=== PATIENT | female | born 1945 | race Caucasian/White ===

== ENCOUNTER 2016-11-06 19:28 | Observation (INO) | payer MEDICARE ==
[~2016-11-06] VITALS: Ht 160 cm; Wt 67.2 kg
[~2016-11-06 19:28] MED LIST: LEVO25TA2 PO; ZOC20 PO
[2016-11-06 19:32] VITALS: BP 190/81; PULSE 72; RESP 15; O2SAT 98
--- NOTE | 2016-11-06 19:43 | ED.REPORT ---
HPI-Neurologic Deficit Date of Service November 06, 2016 ED Provider: Dr. Richar Melendez D.O. A 71 year old female with a history of hypertension, GERD, and arthritis presents to the ED accompanied by her family after a two minute unresponsive episode just prior to arrival. The patient was at her son's house for dinner, when she suddenly sat back and her eyes rolled up into her head. When she came to, she was nonverbal and her eyes were deviated to the left. She was conscious and remembers this episode. The patient's symptoms have resolved since onset. She and her family deny headache, facial droop, focal weakness, or other symptoms. The patient also reports falling from a horse last week and was seen at Urgent Care yesterday for residual hip pain. Nursing Notes Stated Complaint: NEURO ISSUES Chief Complaint: General Complaint Nursing Notes Reviewed: Yes Allergies: Coded Allergies: No Known Allergies (Verified , 11/06/16) Scheduled Levothyroxine-Expunged Drug, Do Not Renew! (Levoxyl-Expunged Drug, Do Not Renew! ) 25 Mcg Tablet 25 MCG PO DAILY Simvastatin-Expunged Drug, Choose New Med! (Simvastatin-Expunged Drug, Choose New Med!) 20 Mg Tablet 20 MG PO DAILY General Time Seen by Provider: 19:43 Chief Complaint Other (Unresponsive Episode) Hx Obtained From: Patient Arrived By: Walk-in Sudden in Onset?: Yes Onset Occurred: Just prior to arrival Symptom Duration: 1 - 15 minutes Severity: Current: No pain currently Severity: Maximum: No pain Related History: Reports: Hypertension Immunizations: Unknown Recent Healthcare: Recent doctor visit Risk Factors NIH Stroke Scale Level of Consciousness: Alert and responsive (0) Ask Month & Age: Both questions right (0) Open/Close Eyes/Hand 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: Performs both tasks (0) Horizontal EO Movements: None (0) Facial Palsy: Normal symmetry (0) Right Arm Motor Drift (10s): No drift 10 sec (0) Left Arm Motor Drift (10s): No drift 10 sec (0) Right Leg Motor Drift (5s): No drift 5 sec (0) Left Leg Motor Drift (5s): No drift 5 sec (0) Limb Ataxia FNF/Heel-Mills: No ataxia (0) Sensation (Arms/Legs/Face): No sensory loss (0) Language Aphasia: No aphasia, normal (0) Dysarthria: Slurring intelligible (1) NIHSS Score: 0 Time NIHSS Performed: 19:52 Date NIHSS Performed: November 06, 2016 Past Medical History Past Medical History Hypertension GERD Arthritis Past Surgical History Kidney Stones Ectopic Knee Smoking History Unknown if Ever Smoker Social History Other Social History: Good social support Ambulatory Status Independent Review of Systems Review of Systems Note: + Left-sided eye deviation - Facial droop Constitutional: Denies: Fever Respiratory: Denies: Non-productive cough, Shortness of breath GI: Denies: Diarrhea, Vomiting Neurologic: Reports: Change LOC, Unable to speak, Denies: Focal weakness, Headache Complete sys rev & neg: except as marked. Physical Exam Initial Vital Signs Vital Signs (First) Date Time Temp Pulse Resp B/P Pulse Ox O2 Delivery O2 Flow Rate FiO2 11/06/16 19:32 36.8 72 15 190/81 98 Room Air Initial VS: Reviewed ENT: Conjunctiva normal, No scleral icterus Neck: Supple, Full range of motion Abdomen / GI: Soft, Non-tender Extremities: Vascular intact, Neuro intact Skin: Warm, Dry, No cyanosis Psychiatric: Mood/affect normal, Behavior normal, Normal thought content General/Constitutional: Awake, Alert, No acute distress Head / Eyes: Atraumatic, Normocephalic, EOMI Respiratory / Chest: Breath sounds NL, Breath sounds = bilat, No respiratory distress Cardiovascular: Heart rate NL, Regular rhythm, Heart sounds NL Neurologic: Oriented X3, Speech NL, No motor deficits, No sensory deficits Interpretation & Diagnostics Lab Results Interpretation Result Diagram: 11/06/16201411/06/162014 Test 11/06/16 20:15 White Blood Count 6.5th/mm3 (3.8-10.1) Red Blood Count 4.21mil/mm3 (3.90-5.20) Hemoglobin 11.7g/dL (12.0-15.6) Hematocrit 35.7% (35.0-46.0) Mean Corpuscular Volume 84.8fL (81-100) Mean Corpuscular Hemoglobin 27.8pg (27.0-35.0) Mean Corpuscular Hemoglobin Concent 32.8% (32.0-37.0) Red Cell Distribution Width 13.6% (12.3-15.4) Platelet Count 258bil/L (150-400) Neutrophils (%) (Auto) 56.9% (40-74) Lymphocytes (%) (Auto) 30.3% (14-46) Monocytes (%) (Auto) 7.2% (4-12) Eosinophils (%) (Auto) 4.6% (0-5) Basophils (%) (Auto) 0.8% (0-3) Sodium Level 141mEq/L (134-144) Potassium Level 3.5mEq/L (3.5-5.2) Chloride Level 101mEq/L (97-108) Carbon Dioxide Level 24mmol/L (18-29) Blood Urea Nitrogen 29mg/dL (8-27) Creatinine 0.78mg/dL (0.57-1.00) Estimat Glomerular Filtration Rate 104mL/min (>59) Glucose Level 123mg/dL (60-99) Calcium Level 10.2mg/dL (8.5-10.1) Magnesium Level 2.0mg/dL (1.6-2.6) Total Bilirubin 0.6mg/dL (0.0-1.2) Aspartate Amino Transf (AST/SGOT) 30U/L (0-50) Alanine Aminotransferase (ALT/SGPT) 20U/L (0-32) Alkaline Phosphatase 84U/L (25-165) Troponin T < 0.010ug/L (0.0-0.011) Total Protein 7.8g/dL (6.4-8.4) Albumin 4.6g/dL (3.4-5.0) Triglycerides Level 122mg/dL (0-149) Cholesterol Level 184mg/dL (100-199) LDL Cholesterol, Calculated 102.600mg/dL (0-99) VLDL Cholesterol 24.400mg/dL HDL Cholesterol 57mg/dL (>39) Cholesterol/HDL Ratio 3.23 (0.0-4.4) ECG Interpretation ECG Interpretation: Sinus rhythm rate 69 Artifact present Nothing acute Time: 19:59 Interpreted by: ED physician X-Ray Chest Interpretation Chest Xray Interpretation: IMPRESSION: No acute process. Dictated by: Ji Shea M.D. on 11/06/2016 at 20:08 View: Portable, 1 view Interpretation / Wet Read by: Interpret - Radiologist CT Head Interpretation IMPRESSION: No acute intracranial abnormality. Dictated by: Ji Shea M.D. on 11/06/2016 at 20:26 Study: Head CT no contrast Interpretation / Wet Read by: Interpret - Radiologist Re-Eval/Medical Decision Source of Hx: Old records Re-Evaluation/Progress : Time of Eval: 21:08 Patient Status: Condition improved Re-Evaluation/Progress Note: Discussed with patient CT, x-ray, and lab results, diagnosis, and plan for discharge. Follow-up and return to the ER instructions given. Patient agrees with plan for care and all questions were addressed. Consultation : Referral / Consult Name: Kate Story Call Returned at: 21:20 Tube Turner: Agrees with eval, Agrees with plan, Accepts admit Counseled Regarding: Diagnosis, Lab results, Need for admission Discharge & Departure Impression: Primary Impression: TIA (transient ischemic attack) Transient cerebral ischemia type: unspecified Qualified Code: G45.9 - Transient cerebral ischemic attack, unspecified Additional Impression: Syncope Syncope type: unspecified Qualified Code: R55 - Syncope and collapse Disposition: ADMITTED TO HOSPITAL Discharge Condition All VS Reviewed: Yes Condition: Improved Referrals: Malka Sanford DO (PCP) Pennyibмария Attestation Portions of this note were transcribed by Olga Ryan. I, Dr. Melendez, personally performed the history, physical exam, and medical decision-making; I reviewed and confirmed the accuracy of the information in the transcribed note. Signed by: Caden Amos, 11/06/2016, 22:26 copies to: Malka Sanford Todd P DO November 06, 2016 19:43 OLGA RYAN November 06, 2016 19:54
[2016-11-06 19:52] VITALS: BP 172/64; PULSE 72; RESP 13; O2SAT 97
--- NOTE | 2016-11-06 20:10 | DRSVH ---
PROCEDURE: X-RAY CHEST ONE VIEW, PORTABLE ([id number]) INDICATIONS: syncope TECHNIQUE: One view of the chest was acquired. COMPARISON: [facility] [place], [place], CHEST 2VW, 08/27/2009, 12:00. FINDINGS: Surgical changes and devices: None. Lungs and pleura: No pleural effusions or pneumothorax. Lungs are clear. Mediastinum: Mediastinal contours appear normal. Heart size is normal. Bones and chest wall: No suspicious bony lesions. Overlying soft tissues appear unremarkable. IMPRESSION: No acute process. Dictated by: Ji Shea M.D. on 11/06/2016 at 20:08 Approved by: Ji Shea M.D. on 11/06/2016 at 20:09
--- NOTE | 2016-11-06 20:28 | DRSVH ---
PROCEDURE: CT BRAIN WITHOUT CONTRAST ([id number]) INDICATIONS: tia TECHNIQUE: Noncontrast 4.5 mm thick angled axial sections acquired from the foramen magnum to the vertex, with c oronal reformats. COMPARISON: None. FINDINGS: Image quality: Excellent. CSF spaces: Basal cisterns are patent. No extra-axial fluid collections. The ventricles are symmet zhang in size and shape. Brain: No intracranial bleeds or masses. There is cerebral volume loss for age, with resultant vent ricular and sulcal prominence. There are periventricular and deep white matter chronic small vessel ischemic changes. There is intracranial internal carotid artery atherosclerosis. Skull and face: Calvarium and visualized facial bones appear intact, without suspicious lesions. Sinuses: Visualized sinuses and mastoids are clear. IMPRESSION: No acute intracranial abnormality. Dictated by: Ji Shea M.D. on 11/06/2016 at 20:26 Approved by: Ji Shea M.D. on 11/06/2016 at 20:27
[2016-11-06 20:31] LABS: BASOPHILS % (AUTO) 0.8 % (0-3); EOSINOPHILS % (AUTO) 4.6 % (0-5); MONOCYTES % (AUTO) 7.2 % (4-12); Mean Corpuscular Hemoglobin 27.8 pg (27.0-35.0); Mean Corpuscular Volume 84.8 fL (81-100); NEUTROPHILS % (AUTO) 56.9 % (40-74); Platelet Count 258 bil/L (150-400)
[2016-11-06 20:54] LABS: TROPONIN T < 0.010 ug/L (0.0-0.011)
[2016-11-06 21:45] VITALS: BP 142/81; PULSE 72; RESP 18; O2SAT 97
[2016-11-06] MEDS ORDERED: Labetalol 5 mg/mL 4 mL Inj IVPUSH PRN (21:50)
[2016-11-06] MEDS ORDERED: Ondansetron 2 mg/mL 2 mL Inj IVPUSH PRN (21:50)
[2016-11-06] MEDS ORDERED: Alum-Mag Hydrox-Simeth 30 mL Suspension PO PRN (21:50)
[2016-11-06] MEDS ORDERED: Polyethylene Glycol (PEG) 17 Gm Powder PO PRN (21:50)
[2016-11-06] MEDS ORDERED: oxyCODONE-Acetamin 5-325 mg Tablet PO PRN (21:50)
[2016-11-06] MEDS ORDERED: Artificial Tears 15 mL Ophthalmic Solution BOTH_EYES PRN (22:00)
--- NOTE | 2016-11-06 22:05 | PCM.HPMED ---
Subjective Date of Service November 06, 2016 Primary Provider: Admitting Physician: Kate Story DO Primary Care Physician: Malka Sanford DO Attending Physician: Kate Story DO Admit Status: From the Emergency Department Chief Complaint: Syncopal event with neurological symptoms History of Present Illness: Karen Meléndez is a 71 year old woman with a PMH of HTN, Hypothyroid, Carotid sclerosis, and insomnia who presents following a witnessed syncopal event at approximately 18:45 on 11/06/16. She reports that she was at the dinner table with family when she suddenly found her eyes locked deviated to the left and she couldn't talk. This lasted about 2 minutes before improving markedly with some lingering leftward BL eye deviation that gradually returned to normal over the next 2 hours. She reports that she is symptom free at the time of evaluation roughly 19:30 on 11/06/16. Of note she also fell off of a horse on which has resulted in lingering bruising and soreness along her left side, she saw urgent care for this injury and was given [place] 5-325 which she states has been working well for her. She currently denies any chest pain, palpitations , headache, visual phenomena, changes in sensation or perception, or lingering changes in mentation. In the ED the patient underwent CT of the brain which was negative for stroke, but does appear to show extensive carotid calcification BL, CXR was normal and her labs were remarkable only for very mild normocytic anemia, mild hyperglycemia, and a slightly elevated BUN at 29. Allergies Coded Allergies: No Known Allergies (Verified , 11/06/16) Home Medications Levothyroxine 0.05 mg 1.5 tablets daily Lisinopril 10 mg PO daily Meloxicam 7.5 mg PO Q1-2hr PRN [place] 5-325 Q4 PRN Omeprazole 20mg PO daily before meals Refresh Tears 0.5% eye drops, 1-3 drops q4 PRN Simvastatin 20mg PO HS Zolpidem 5 mg PO HS PRN PMH Hypertension GERD Arthritis Hypothyroidism Surgical History Left partial knee replacement Family History Father DM, CHF, HTN Mother Alive with HTN, and dementia Sister Hyperlipidemia 3 sons alive and well Social History Hx Alcohol Use: No Hx Substance Use: No Hx Tobacco Use: No Smoking Status: Unknown if Ever Smoker Living Arrangement: with Family Exam Vital Signs Vital Sign - Last Date Time Temp Pulse Resp B/P Pulse Ox O2 Delivery O2 Flow Rate FiO2 11/06/16 21:45 37.0 72 18 142/81 97 Room Air Exam Gen: A/O x3 pleasant cooperative woman in mild acute distress secondary to left sided pain and bruising Neck: Supple, non tender, mild BL carotid bruit, no JVD HEENT: PERRL, EOMI, no scleral icterus, no conjunctival pallor CV: RRR, no murmurs rubs or gallops Resp: Lungs CTA BL, no wheezing rales or rhonchi GI: Soft, non tender, no organomegaly, normoactive bowel sounds Skin: Diffuse bruising about the left side from should to hip with mild shallow abrasions to left nasal bridge and left forehead MS: Rheumatoid arthritis with knuckle hypertrophy and mild ulnar deviation, no cyanosis clubbing or edema, bruising as above Neuro: CN 2-12 intact, no focal neurological deficit, Strength and sensation intact and equal BL, no facial droop, speech clear and coherent: NIHSS 0 Psych: pleasantly surly Lymphatic: no cervical or supraclavicular lymphadenopathy on palpation Lab and Diagnostics Labs Item Value Date Time Estimat Glomerular Filtration Rate 104 mL/min 11/06/162014 Calcium Level 10.2 mg/dL H 11/06/162014 Magnesium Level 2.0 mg/dL 11/06/162014 Total Bilirubin 0.6 mg/dL 11/06/162014 Aspartate Amino Transf (AST/SGOT) 30 U/L 11/06/162014 Alanine Aminotransferase (ALT/SGPT) 20 U/L 11/06/162014 Alkaline Phosphatase 84 U/L 11/06/162014 Troponin T < 0.010 ug/L 11/06/162014 Total Protein 7.8 g/dL 11/06/162014 Albumin 4.6 g/dL 11/06/162014 Red Blood Count 4.21 mil/mm3 11/06/162014 Neutrophils (%) (Auto) 56.9 % 11/06/162014 Lymphocytes (%) (Auto) 30.3 % 11/06/162014 Monocytes (%) (Auto) 7.2 % 11/06/162014 Eosinophils (%) (Auto) 4.6 % 11/06/162014 Basophils (%) (Auto) 0.8 % 11/06/162014 Result Diagram: 11/06/16201411/06/162014 X-Rays, CTs and MRIs CT BRAIN WITHOUT CONTRAST IMPRESSION: No acute intracranial abnormality. Dictated by: Ji Shea M.D. on 11/06/2016 at 20:26 Approved by: Ji Shea M.D. on 11/06/2016 at 20:27 X-RAY CHEST ONE VIEW, PORTABLE IMPRESSION: No acute process. Dictated by: Ji Shea M.D. on 11/06/2016 at 20:08 Approved by: Ji Shea M.D. on 11/06/2016 at 20:09 . Assessment & Plan Radha Meléndez is a 71 year old woman with PMH of HTN, GERD, Carotid bruits, and insomnia who presents following a witness syncopal episode with associated left eye deviation and inability to speak lasting 2 minutes and resolving spontaneously. History and presentation most consistent with TIA, though arrhythmia or other cardiac etiology cannot be excluded at this time. 1. Syncope, present on admission, acute. Stable -Most likely secondary to TIA -Arrhythmia, post prandial, vasovagal, adverse opiate reaction, or cardiac etiology cannot yet be excluded -Be aware of fall risk in this patient also recovering from othropedic injury and some misconceptions about her physical capacity -Tele monitoring and ECHO tomorrow AM to investigate for potential cardiac etiology 2. BL eye deviation (left) and aphasia, likely TIA, present on admission, acute. Stable -CT brain in the ED negative for any active stroke or bleed -MR stroke tomorrow AM -Holding home Lisinopril for permissive HTN -Labetalol IV, or 200 mg PO should IV be unavailable for SBP >220, or DBP >120 -ECHO as above -Carotid calcification seen on Head CT, patient may benefit from Carotid US tomorrow AM -Atorvastatin 10 mg PO HS to replace home Simvastatin -Aspirin 325 mg PO daily -Swallow eval tomorrow AM -PT/OT eval tomorrow AM 3. Hypothyroid, present on admission, chronic. Active -TSH T4 pending -Continue home Levothyroxine 25 mcg PO daily 4. Recent Trauma due to falling from a horse, present on admission, acute. Active -Continuing patient's [place] 5-325 Q4 PRN; If she manifests any neurologic or syncopal symptoms DC this medication -Continue home Meloxicam 7.5mg PO BID PRN -Imaging conducted 11/05/16 negative for acute fracture of ribs or hip 5. HTN, present on admission, chronic. Active -Currently holding home Lisinopril for permissive HTN -Labetalol within parameters: If SBP >220 or DBP > 120 use Labetalol 10-20 mg IV , or 200 mg PO should IV be unavailable 6. Chronic GERD, present on admission. Stable -Substituting Protonix for home Omeprazole 7. Insomnia, present on admission, chronic. Stable -Continue home Zolpidem 5 mg PO HS Code Status: FULL CODE Disposition: Observation, this may be converted to inpatient should manifest any concerning symptoms, laboratory or imaging abnormalities that require further investigation and treatment. Pain Evaluation: Adequate Pain Control GI Prophylaxis: Proton Pump Inhibitor VTE Prophylaxis: Other (Recent Fall with extensive bruising, holding anti- coagulation for risk of further bleed) VTE Mechanical Devices: Intermittant Pneumatic CD Resuscitation Status: CPR: Attempt Resuscitation Attending Statement The patient was seen and examined together with house staff on 11/06/2016 and I agree with the history, exam and plan as outlined in the note above. Santos Bernabe DO November 06, 2016 22:05 Kate Story DO November 07, 2016 03:11
[2016-11-06 22:11] VITALS: BP 135/64; PULSE 65; RESP 20; O2SAT 98
[2016-11-06 22:23] VITALS: PULSE 66
[2016-11-06] MEDS ORDERED: SIMV10TA4 PO (23:00)
[2016-11-06] MEDS ORDERED: MELO7.5O PO (23:00)
[2016-11-06] MEDS ORDERED: LISI10TA PO (23:00)
[2016-11-06] MEDS ORDERED: LEVO100T6 PO (23:00)
[2016-11-07] VITALS (10 sets, daily range): BP systolic 139–163; BP diastolic 56–83; PULSE 58–78; RESP 16–20; O2SAT 95–97
--- NOTE | 2016-11-07 01:46 | NUR ---
Admit Patient arrived to unit at 2205, self transfer to bed with SBA. Oriented to room by NAC. Report received from ED RN prior to arrival. Arrived with patent IV, all belongings, denies CP, SOB, Abdominal discomfort at that time. Put on Tele monitor.
[2016-11-07 01:53] LABS: APPEARANCE,URINE CLEAR (CLEAR,HAZY); COLOR,URINE YELLOW (YELLOW); OCCULT BLOOD,URINE NEGATIVE (NEGATIVE); UROBILINOGEN,URINE NORMAL (NORMAL)
[2016-11-07] MEDS ORDERED: Pantoprazole 20 mg ER24 Tablet PO SCH (07:30)
--- NOTE | 2016-11-07 08:15 | NUR ---
MRI Pt to MRI via . Transferred back after. No significant changes. Pt states that she is starving. Speech therapy ordered and nurse to provide preliminary swallow eval. A&OX4; Denies CP, SOB, Nausea, Pain. Care continues
[2016-11-07] MEDS ORDERED: LEVO50TA6 PO (09:04)
[2016-11-07] MEDS ORDERED: SIMV20TA4 PO (09:04)
[2016-11-07] MEDS ORDERED: ZOLP5TAB6 PO (09:04)
[2016-11-07] MEDS ORDERED: OMEP20CA11 PO (09:04)
[2016-11-07] MEDS ORDERED: MELO-259 PO (09:29)
[2016-11-07] MEDS ORDERED: HYDR-4003 PO (09:29)
[2016-11-07] MEDS ORDERED: CARB15DR2 OP (09:29)
--- NOTE | 2016-11-07 09:41 | NUR ---
Med Rec Pt able to recall some of her home medications. Pt provided me with a med list from her provider's office but list is not complete. Obtained med lists from both Dr Malka Sanford DO and pt's pharmacy at [facility]. Pt able to recall most of her medications but unsure about med stregth/dosage. Notifiefd pt's hospitalist on [facility] team that Med Rec is completed.
--- NOTE | 2016-11-07 10:20 | NUR ---
CT Pt goes to CT via WC transfer.
--- NOTE | 2016-11-07 11:18 | NUR ---
Evaluation completed. Please go to "Notes" then click on "Assessments and Notes" (bottom left corner of screen). Then select appropriate discipline tab on top of screen.
--- NOTE | 2016-11-07 11:20 | DRSVH ---
PROCEDURE: CT ANGIO HEAD AND NECK (P) INDICATIONS: re stroke/tia cta head and neck TECHNIQUE: Pre-contrast 4.5 mm thick sections acquired from the foramen magnum to the vertex. After the adminis tration of intravenous contrast, 1 mm thick sections acquired from the aortic arch through the [place] of [place]. Post-contrast 4.5 mm thick sections then re-acquired from the foramen magnum to the vert ex. 3-dimensional gntpnbq-kuafvngul-lvwmhmggsm (MIP) and/or volume rendering reformats were acquired of the central intracranial vasculature and neck separately. For radiation dose reduction, the foll owing was used: automated exposure control, adjustment of mA and/or kV according to patient size. COMPARISON: None. FINDINGS: Image quality: Excellent. BRAIN: CSF spaces: Ventricles are normal in size and shape. Basal cisterns are patent. No extra-axial flu id collections. Brain: No midline shift. No intracranial bleeds or masses. Pascual-white matter interface appears int act. Skull and face: Calvarium and facial bones appear intact, without suspicious lesions. Orbits appear normal. Sinuses: Sinuses and mastoids are clear. HEAD CT ANGIOGRAPHY: Anterior circulation: Intracranial internal carotid arteries are normal in size and flow. The flow within the paired anterior cerebral arteries is normal and symmetric. The flow within the middle cer ebral arteries is normal and symmetric. The anterior communicating artery is seen. No aneurysms are seen. Posterior circulation: Visualized portions of the vertebral arteries demonstrate normal caliber, and join to form a normal appearing basilar artery. Flow within the posterior cerebral arteries is norm al and symmetric. No aneurysms are seen. NECK CT ANGIOGRAPHY: Carotid system: The great vessels demonstrate a conventional anatomy as they arise from the aortic a rc. The origins of the common carotid arteries appear patent. The common carotid arteries demonstr ate normal caliber and courses. The bifurcation regions are both widely patent. The internal caroti d arteries demonstrate normal calibers and courses. Posterior circulation: Right subclavian artery demonstrates a mild origin stenosis. There is a moder ate origin stenosis involving the left subclavian artery. The origins of the vertebral arteries both appear widely patent. The more superior extracranial portions of both vertebral arteries also demons trate normal courses and calibers. They join to form a normal appearing basilar artery. Soft tissues: Visualized neck soft tissues demonstrate no suspicious abnormalities. Bones: No suspicious bony lesions. Visualized cervical spine appears normally aligned. IMPRESSION: 1. No significant internal carotid artery stenosis. 2. Patent bilateral vertebral arteries. 3. Moderate left subclavian artery origin stenosis. 4. Negative evaluation of the intracranial vasculature. 5. No acute intracranial process. Dictated by: Ji Shea M.D. on 11/07/2016 at 11:14 Approved by: Ji Shea M.D. on 11/07/2016 at 11:18
--- NOTE | 2016-11-07 11:38 | NUR ---
Evaluation completed. Please go to "Notes" then click on "Assessments and Notes" (bottom left corner of screen). Then select appropriate discipline tab on top of screen.
[2016-11-07] MEDS ORDERED: _HYDROcodone/APAP 5-325 mg Tablet PO PRN (12:10)
--- NOTE | 2016-11-07 12:19 | PCM.PNMED ---
Subjective Date of Service November 07, 2016 Subjective doing ok today. no recurrence of symptoms. denies h/a, neck pain, lightheadedness, chest pain, dypsnea, abd pain, n/v/d, fevers, chills Exam Vital Signs Vital Sign - Last Date Time Temp Pulse Resp B/P Pulse Ox O2 Delivery O2 Flow Rate FiO2 11/07/16 11:50 36.7 64 18 139/65 96 Room Air Exam gen nad lungs ctab heart rrr no m/r/g abd soft nt/nd ext no le edema erythema, swelling, pain neuro: no focal neurologic deficits psc appropriate Lab and Diagnostics Result Diagram: 11/06/16201411/06/162014 X-Rays, CTs and MRIs CT BRAIN WITHOUT CONTRAST IMPRESSION: No acute intracranial abnormality. Dictated by: Ji Shea M.D. on 11/06/2016 at 20:26 Approved by: Ji Shea M.D. on 11/06/2016 at 20:27 X-RAY CHEST ONE VIEW, PORTABLE IMPRESSION: No acute process. Dictated by: Ji Shea M.D. on 11/06/2016 at 20:08 Approved by: Ji Shea M.D. on 11/06/2016 at 20:09 . Assessment & Plan -- BL eye deviation (left) and aphasia she tells me she did NOT lose conciousness during this event. it lasted for about 25-30 mins. await neurologic w/u mri, cta head,neck, echo cont to monitor on tele. symptoms have resolved now. seizure also in the differential however no other symptoms such as shaking, oral trauma, loss of bladder or bowels 3. Hypothyroid, present on admission, chronic. Active tsh slightly high. cont to observe recheck in 4-6weeks as outpt. 4. Recent Trauma due to falling from a horse, present on admission, acute. Active supportive therapy 5. HTN, present on admission, chronic. Active cont to monitor await neuro w/u 6. Chronic GERD, present on admission. Stable -Substituting Protonix for home Omeprazole 7. Insomnia, present on admission, chronic. Stable -Continue home Zolpidem 5 mg PO HS dispo: pending cont observation, neurologic w/u potential for d/c home this evening or tomorrow if medically stable. GI Prophylaxis: Proton Pump Inhibitor VTE Prophylaxis: Other (Recent Fall with extensive bruising, holding anti- coagulation for risk of further bleed) VTE Mechanical Devices: Intermittant Pneumatic CD Resuscitation Status: CPR: Attempt Resuscitation Pedro Aj MD November 07, 2016 12:19
--- NOTE | 2016-11-07 12:23 | NUR ---
Social Work-initial assessment/ readiness for discharge: data:see initial assessment. Pt is a 71 y/o female who was admitted on 11/06/16 for TIA per H&P. Pt's insurance is [employer] and PCP is ankush Sanford Do. EMR reviewed. SW met with pt at bedside to discuss discharge planning, SW role explained. Pt is alert and oriented x3. pt resides at home with her where he remains independent with ADLS. Pt drives and does not use any DME. Pt has no HH or SNF history. Pt has no [employer] continuous churn care or [employer] benefits. SW discussed DPOA/ advanced directive, pt confirms she has not completed this, SW provided pt with a copy. PT and OT have seen pt and cleared pt for home no needs. Pt confirms this plan and states her will provide transport home at discharge. SW provided phone number and plan on white board in room. No anticipated discharge needs. SW will continue to follow if needs arise. Assessment:Pt who is independent at baseline. Plan:Pt to discharge home when medically stable via POV. No anticipated discharge needs. SW will continue to follow if needs arise. YANET Thao Addendum: 11/07/16 at 1227 by EKTA KLINE Amended: Links added.
--- NOTE | 2016-11-07 12:27 | NUR ---
Evaluation completed. Please go to "Notes" then click on "Assessments and Notes" (bottom left corner of screen). Then select appropriate discipline tab on top of screen.
[2016-11-07] MEDS ORDERED: HYDROcodone-APAP 5-325 mg Tablet PO PRN (12:45)
--- NOTE | 2016-11-07 13:50 | DRSVH ---
PROCEDURE: MRI BRAIN WITHOUT CONTRAST ([id number]) INDICATIONS: stroke TECHNIQUE: Non-contrast axial T1 spin echo, axial T2 fast spin echo, sagittal and axial FLAIR, coronal T2 fast s pin echo, axial gradient echo, axial diffusion and ADC through the brain. COMPARISON: [facility], MR, MR STROKE PROTOCOL, 05/13/2015, 10:15[facility], 11/06/2016, 20:23. [facility], CT, CT ANGIO BRAIN AND NECK, 11/07, 10:33. FINDINGS: Image quality: Excellent. CSF spaces: Ventricles appear symmetric in size and shape. Basal cisterns are patent. No extra-axi al fluid collections. Brain: No intracranial bleeds or mass effects. There is cerebral volume loss for age. There are pe riventricular and deep white matter chronic small vessel ischemic changes. Brainstem appears normal. Diffusion-weighted images show no acute ischemic insults. No chronic ischemic insults. Normal int ravascular flow voids are present. Punctate focus of gradient artifact in the right temporal lobe, n ew compared to 05/17/15. This could represent a small area dystrophic calcification or interval dev elopment of cavernous angioma. Skull and face: Calvarial bone marrow is normal in signal. Orbits are normal. Sinuses: Sinuses and mastoids are clear. IMPRESSION: 1. No acute intracranial process. No acute ischemia. 2. Mild atrophy and chronic microvascular ischemic changes. Dictated by: Brittney Ortiz M.D. on 11/07/2016 at 13:36 Approved by: Brittney Ortiz M.D. on 11/07/2016 at 13:48
--- NOTE | 2016-11-07 19:29 | NUR ---
No Deficits No deficits noted. Pt ambulating well with steady gait independently. Care continues Waiting for Echo in morning.
[2016-11-08 00:18] VITALS: BP 121/68; PULSE 60; RESP 16; O2SAT 94
--- NOTE | 2016-11-08 05:31 | NUR ---
NOC activity No deficits noted. Pt ambulating well with steady gait independently; observed sleeping well. Waiting for Echo in morning. Hourly rounding ongoing.
[2016-11-08 06:23] VITALS: BP 117/57; PULSE 59; RESP 16; O2SAT 97
[2016-11-08] MEDS ORDERED: Pantoprazole 40 mg ER24 Tablet PO SCH (06:30)
[2016-11-08 08:24] VITALS: BP 132/68; PULSE 69; RESP 16; O2SAT 96
[2016-11-08 09:55] VITALS: PULSE 64
[2016-11-08 12:45] VITALS: BP 106/59; PULSE 70; RESP 16; O2SAT 95
--- NOTE | 2016-11-08 12:46 | DRSVH ---
[facility] [address] [place] [address] Echocardiogram Report Name: JODY VILLAR MStudy Date: 11/08/2016 Height: 63 in Hospital Exam Location: [facility] Weight: 145 lb Gender: Female BSA: 1.7 m2 : 1945 Age: 71 yrs BP: 117/57 mmHg Reason For Study: TIA, HTN Ordering Physician: Performed By: Daylin Rod Referring Physician: DR. Blake LEIVA Interpretation Summary The left ventricle is normal in size. The ejection fraction is estimated to be 60-65%. There is no LV thrombus. The right ventricle is normal in size and function. No significant valvular pathology seen. Mild atherosclerotic plaque(s) in the aortic arch. Procedure: A two-dimensional transthoracic echocardiogram with color flow and Doppler was performed. The study quality was technically good. There is no prior echocardiogram noted for this patient. The patient was in normal sinus rhythm during the exam. Left Ventricle: The left ventricle is normal in size. Proximal septal thickening is noted. There is no echo evidence for significant left ventricular outflow tract obstruction. There is no thrombus. The ejection fraction is estimated to be 60-65%. There are no focal wall motion abnormalities. Spectral Doppler of the mitral valve is reversed, with an E/A wave ratio < 1.0. Right Ventricle: The right ventricle is normal in size and function. Atria: Both atria are normal in size. There is no Doppler evidence for an atrial septal defect. Mitral Valve: There is mild mitral annular calcification. The mitral valve leaflets are slightly calcified. There is trace mitral regurgitation. Aortic Valve: The aortic valve is trileaflet. The aortic valve opens well. The aortic valve is slightly calcified. There is no aortic valve stenosis. No aortic regurgitation is present. Tricuspid Valve: The tricuspid valve is normal. The right ventricular systolic pressure is estimated at 24 mmHg assuming a right atrial pressure of 3 mm Hg. There is trace tricuspid regurgitation. Pulmonic Valve: The pulmonic valve is not well seen, but is grossly normal. There is mild pulmonic regurgitation. Great Vessels: The aortic root is normal size. There is aortic root sclerosis/calcification. The dimensions of the ascending aorta are normal. Mild atherosclerotic plaque(s) in the aortic arch. The pulmonary artery is normal size. The IVC is of normal diameter and collapses greater than 50% with a sniff. This suggests a low right atrial pressure of 3 mm Hg. Pericardium/ Pleura There is no pericardial effusion. There is no pleural effusion. MMode/2D Measurements & Calculations LVIDd: 4.5 cm LA dimension: 3.9 cm RA long axis LVOT diam: 2.2 cm LVIDs: 2.6 cm AoV Opening FS: 41.9 % LA A2 area: 16.7 cm RA area EPSS: 0.31 cm LA A4 area: 18.8 cm Ao root diam IVSd: 0.99 cm LA length (vol) : 15.6 cm LVPWd: 1.1 cm RA vol Aortic Jxn: 2.8 cm LA vol: 52.5 ml : 39.8 ml asc Aorta Diam LA vol index RA : 23.6 mm2 Ao Arch Diam (Prox Trans): 2.8 cm IVC diam: 1.3 cm LV reyes. diameter/BSA LV sys. diameter/BSA RVD2 (mid) (cm/m^2): 2.7 (cm/m^2): 1.6 : 3.3 cm Doppler Measurements & Calculations Ao V2 max MV E max abdullahi MV E/A: 0.74 TR max abdullahi : 128.1 cm/sec : 64.6 cm/sec Med Peak E' Abdullahi : 227.6 cm/sec Ao max PG MV A max abdullahi TR max PG : 6.6 mmHg : 87.9 cm/sec E/E' med: 11.0 : 20.7 mmHg Ao mean PG MV P1/2t: 52.3 msec Lat Peak E' Abdullahi PA V2 max : 76.0 cm/sec LVOT Max Abdullahi E/E' lat: 7.2 PA mean PG : 87.7 cm/sec E/e' average: 9.1 Pulm A Revs Dur PA Accel Time KAVITA(I,D): 2.7 cm : 0.12 sec sev ratio MV A dur: 0.16 sec MV dec time MV P1/2t max abdullahi Ao V2 mean LV V1 max PG : 0.18 sec : 86.5 cm/sec MVA(P1/2t): 4.2 cm2 Ao V2 VTI: 26.6 cm LV V1 VTI KAVITA(V,D): 2.6 cm2 : 18.9 cm PA V2 mean KAVITA indexed to BSA Pulbret Salcido Revs Dur - MV A : 53.1 cm/sec (cm^2/m^2): 1.6 Dur: -0.03 msec Reading Physician:YOMAIRA
[2016-11-08] MEDS ORDERED: ASPI-973 PO (13:29)
--- NOTE | 2016-11-08 13:29 | PCM.DIMED ---
Discharge Instructions Date of Service November 08, 2016 Dates of Hospitalization November 06, 2016 at 21:47 Discharge Diagnosis Discharge Diagnosis 1. Transient ischemic attack (TIA) 2. Hypertension 3. GERD Diet Heart Healthy Activity Limited until seen by PCP Patient Instructions See Dr Sanford at [facility] in one week Follow-up plan Call 911 for stroke symptoms such as difficulty speaking, visual troubles, or weakness or arms or legs. Follow-up with PCP in: 1 week Fadi Omalley MD November 08, 2016 13:28
--- NOTE | 2016-11-08 14:24 | PCM.DC.MED ---
Discharge Summary Date of Service November 08, 2016 Dates of Hospitalization Date of Hospital Admission November 06, 2016 at 21:47 Date of Discharge: November 08, 2016 Providers: Admitting Physician: Kate Story DO Primary Care Physician: Malka Sanford DO Attending Physician: Kate Story DO Diagnosis at Time of Discharge Diagnosis at Time of Discharge 1. Transient ischemic attack (TIA) 2. Hypertension 3. GERD Consultations None Procedures XRay, CTs & MRIs CT BRAIN WITHOUT CONTRAST IMPRESSION: No acute intracranial abnormality. Dictated by: Ji Shea M.D. on 11/06/2016 at 20:26 Approved by: Ji Shea M.D. on 11/06/2016 at 20:27 X-RAY CHEST ONE VIEW, PORTABLE IMPRESSION: No acute process. Dictated by: Ji Shea M.D. on 11/06/2016 at 20:08 Approved by: Ji Shea M.D. on 11/06/2016 at 20:09 CT angiogram of the brain and neck are unremarkable. No evidence of dissection or intracranial thrombus or severe cerebrovascular disease. MRI of the brain is negative for evidence of acute or old stroke. . ECG 12 Lead Normal sinus rhythm Cardiac Echo Impression Unremarkable study. No valvular disease or evidence of arrhythmia or shunt. Normal ventricular function. No thrombus. Invasive Procedures None Brief History Karen Meléndez is a 71 year old woman with a PMH of HTN, Hypothyroid, Carotid sclerosis, and insomnia who presents following a witnessed syncopal event at approximately 18:45 on 11/06/16. She reports that she was at the dinner table with family when she suddenly found her eyes locked deviated to the left and she couldn't talk. This lasted about 2 minutes before improving markedly with some lingering leftward BL eye deviation that gradually returned to normal over the next 2 hours. She reports that she is symptom free at the time of evaluation roughly 19:30 on 11/06/16. Of note she also fell off of a horse on which has resulted in lingering bruising and soreness along her left side, she saw urgent care for this injury and was given Guion 5-325 which she states has been working well for her. She currently denies any chest pain, palpitations , headache, visual phenomena, changes in sensation or perception, or lingering changes in mentation. In the ED the patient underwent CT of the brain which was negative for stroke, but does appear to show extensive carotid calcification BL, CXR was normal and her labs were remarkable only for very mild normocytic anemia, mild hyperglycemia, and a slightly elevated BUN at 29. Hospital Course #. TIA, POA. She had no recurrent symptoms on the hospital. She was in normal sinus rhythm throughout. Her imaging studies were unremarkable. She will be started on aspirin and continued on simvastatin. She will have close follow-up with her primary care doctor. 3. Hypothyroid, present on admission, chronic. Active 4. Recent Trauma due to falling from a horse, present on admission, acute. Active supportive therapy no issues during hospitalization. 5. HTN, present on admission, chronic. Able throughout hospitalization. 6. Chronic GERD, present on admission. Stable 7. Insomnia, present on admission, chronic. Stable - Exam Vital Signs (Last) Date Time Temp Pulse Resp B/P Pulse Ox O2 Delivery O2 Flow Rate FiO2 11/08/16 12:45 36.4 70 16 106/59 95 Room Air Exam Patient is seen and examined on the day of discharge. Normal extraocular movements. No visual field loss. Normal speech. Normal extremity strength and speech. Test 11/06/16 20:15 11/07/16 01:30 White Blood Count 6.5th/mm3 (3.8-10.1) Red Blood Count 4.21mil/mm3 (3.90-5.20) Hemoglobin 11.7g/dL (12.0-15.6) Hematocrit 35.7% (35.0-46.0) Mean Corpuscular Volume 84.8fL (81-100) Mean Corpuscular Hemoglobin 27.8pg (27.0-35.0) Mean Corpuscular Hemoglobin Concent 32.8% (32.0-37.0) Red Cell Distribution Width 13.6% (12.3-15.4) Platelet Count 258bil/L (150-400) Neutrophils (%) (Auto) 56.9% (40-74) Lymphocytes (%) (Auto) 30.3% (14-46) Monocytes (%) (Auto) 7.2% (4-12) Eosinophils (%) (Auto) 4.6% (0-5) Basophils (%) (Auto) 0.8% (0-3) Sodium Level 141mEq/L (134-144) Potassium Level 3.5mEq/L (3.5-5.2) Chloride Level 101mEq/L (97-108) Carbon Dioxide Level 24mmol/L (18-29) Blood Urea Nitrogen 29mg/dL (8-27) Creatinine 0.78mg/dL (0.57-1.00) Estimat Glomerular Filtration Rate 104mL/min (>59) Glucose Level 123mg/dL (60-99) Hemoglobin A1c 5.8% (4.8-5.6) Calcium Level 10.2mg/dL (8.5-10.1) Magnesium Level 2.0mg/dL (1.6-2.6) Total Bilirubin 0.6mg/dL (0.0-1.2) Aspartate Amino Transf (AST/SGOT) 30U/L (0-50) Alanine Aminotransferase (ALT/SGPT) 20U/L (0-32) Alkaline Phosphatase 84U/L (25-165) Troponin T < 0.010ug/L (0.0-0.011) Total Protein 7.8g/dL (6.4-8.4) Albumin 4.6g/dL (3.4-5.0) Triglycerides Level 122mg/dL (0-149) Cholesterol Level 184mg/dL (100-199) LDL Cholesterol, Calculated 102.600mg/dL (0-99) VLDL Cholesterol 24.400mg/dL HDL Cholesterol 57mg/dL (>39) Cholesterol/HDL Ratio 3.23 (0.0-4.4) Thyroid Stimulating Hormone (TSH) 6.290uIU/mL (0.450-4.500) Free Thyroxine 1.08ng/dL (0.82-1.77) Urine Color Yellow (YELLOW) Urine Appearance Clear (CLEAR,HAZY) Urine pH 6.0 (5.0-8.0) Urine Specific [place] 1.028 (1.003-1.035) Urine Protein Negativemg/dL (NEG,TRACE) Urine Glucose (UA) Negativemg/dL (NEGATIVE) Urine Ketones Negativemg/dL (NEGATIVE) Urine Occult Blood Negative (NEGATIVE) Urine Nitrite Negative (NEGATIVE) Urine Bilirubin Negative (NEGATIVE) Urine Urobilinogen Normalmg/dL (NORMAL) Urine Leukocyte Esterase Negative (NEGATIVE) Urine RBC 0-2/hpf (0-2) Urine WBC 0-5/hpf (0-5) Urine Epithelial Cells Occasional/hpf (NONE-MOD) Urine Crystals None seen (NONE SEEN) Urine Bacteria None/hpf (NONE-FEW) Urine Hyaline Casts None/lpf (NONE) Urine Granular Casts None seen (NONE SEEN) Urine Waxy Casts None seen (NONE SEEN) Urine Red Blood Cell Casts None seen (NONE SEEN) Urine White Blood Cell Casts None seen (NONE SEEN) Urine Mucus Present (None Seen) Urine Trichomonas None seen (NONE SEEN) Urine Yeast None (NONE SEEN) Urine Culture Reflexed Not indicated Discharge Medications Discharge Medications Aspirin (Aspirin) 81 Mg Tablet 81 MG PO DAILY Prescribed by: FADI BLUE MD Levothyroxine (Levothyroxine) 50 Mcg Tablet 75 MCG PO DAILY (Reported) Lisinopril (Lisinopril) 10 Mg Tablet 10 MG PO HS (Reported) Meloxicam (Meloxicam) 7.5 Mg Tablet 7.5-15 MG PO HS (Reported) Omeprazole (Omeprazole) 20 Mg Capsule.dr 20 MG PO DAILY (Reported) Simvastatin (Simvastatin) 20 Mg Tablet 20 MG PO HS (Reported) As needed Carboxymethylcellulos/Glycerin (Refresh Optive Eye Drops) 15 Ml Drops 1-3 GTTS OP PRN Dryness (Reported) Hydrocodone-Acetaminophen 5-325 mg (Hydrocodone-Acetaminophen 5-325 mg) 1 Each Tablet 1 TABLET PO Q6H PRN PRN For Pain (Reported) Zolpidem (Zolpidem) 5 Mg Tablet 2.5-5 MG PO HS PRN PRN For Insomnia (Reported) Followup Plan Disposition: Home Follow-up plan Call 911 for stroke symptoms such as difficulty speaking, visual troubles, or weakness or arms or legs. Discharge Diet: Heart Healthy Discharge Activity: Limited until seen by PCP Patient Instructions See Dr Sanford at [facility] in one week Follow-up with PCP in: 1 week Time spent 35 minutes Fadi Blue MD November 08, 2016 14:23
--- NOTE | 2016-11-08 14:46 | NUR ---
Discharged Patient discharged home with . Pt given verbal and written discharge instructions and agreed to understanding them. Patient denied any further questions. Prescription given for aspirin. Patient had all belongings upon discharge.
--- NOTE | 2016-11-08 15:46 | NUR ---
Social Work-Discharge Data:EMR reviewed. Pt is on day 2 of hospitalization for TIA, Syncope per H&P. Pt is medically stable to discharge today. Pt discharged home with to transport via POV. No discharge needs. Assessment:Pt who is independent at baseline. Plan: Pt to discharge home when medically stable via POV. No discharge needs. Linda Cormier MSW
== END 2016-11-08 14:30 | disposition home or self-care (01) ==
LOC: SED 19:28 → OSC 21:47
PROVIDERS: ADMIT Internal Medicine; ATTEND Internal Medicine
DX: G45.9 Transient cerebral ischemic attack, unspecified (principal); E03.9 Hypothyroidism, unspecified; I10 Essential (primary) hypertension; K21.9 Gastro-esophageal reflux disease without esophagitis; G47.00 Insomnia, unspecified; R55 Syncope and collapse; H51.8 Other specified disorders of binocular movement; I65.29 Occlusion and stenosis of unspecified carotid artery; R13.0 Aphagia; M19.90 Unspecified osteoarthritis, unspecified site; Z96.652 Presence of left artificial knee joint
CPT/HCPCS: 36415; 70450; 70496; 70498; 70551; 71010; 80053; 80061; 81000; 82948; 83036; 83735; 84439; 84443; 84484; 85025; 92610; 93005; 97161; 97165; 99285; C8929; G0378; Q9967

== ENCOUNTER → 2017-03-14 | Day surgery (SDC) | payer MEDICARE ==
[~2017-03-14] VITALS: Ht 160 cm; Wt 64.4 kg
[2017-03-14] VITALS (14 sets, daily range): BP systolic 121–156; BP diastolic 53–64; PULSE 54–63; RESP 8–25; O2SAT 88–100
[~2017-03-14] MED LIST changes: +ASPI-973 PO; +Acetaminophen IV 1,000 MG in IV Premix 1 EACH IV ONE; +Atropine 0.4 mg/mL Inj IVPUSH PRN; +Bupivacaine Liposome 1.3% 20 mL Inj INFILTRATE SCH; +CeFAZolin Inj 2 GM in IV Premix 1 EACH IV ONE; +Dexamethasone 4 mg/mL Inj ONE; +EPHEDrine Sulfate 50 mg/mL Inj IVPUSH PRN; +HYDROmorphone 0.5 mg/0.5 mL iSecure Syringe ONE; +HYDROmorphone 1 mg/mL Inj ONE; +Ketorolac 15 mg/mL Inj IVPUSH ONE; -LEVO25TA2 PO; +LEVO50TA6 PO; +LISI10TA PO; +Labetalol 5 mg/mL 20 mL Inj IV PRN; +Lactated Ringer's 1,000 ML IV SCH; +Lactated Ringer's 500 ML IV PRN; +MetoCLOpramide 5 mg/mL 2 mL Inj IVPUSH PRN; +OMEP20TA86 PO; +Ondansetron 2 mg/mL 2 mL Inj IVPUSH PRN; +Ondansetron 2 mg/mL 2 mL Inj ONE; +Phenylephrine 10,000 mCg/mL Inj IVPUSH PRN; +Propofol 10,000 mCg/mL 20 mL Inj ONE; +Ropivacaine-PF 0.5% 30 mL Inj INFILTRATE ONE; +SIMV20TA4 PO; +Vancomycin Inj 1,000 MG in IV Premix 1 EACH IV ONE; -ZOC20 PO; +ZOLP5TAB6 PO; +hydrOXYzine Pamoate 25 mg Capsule PO PRN
[2017-03-14] MEDS: Lactated Ringer's 1,000 ML IV SCH ×3 (05:48→09:47)
--- NOTE | 2017-03-14 07:37 | PCM.HPANE ---
Patient Data Surgeon Admitting Provider: Attending Provider:Martell Mendoza DO Primary Care Physician:Malka Sanford DO Other Provider:Rory Contreras Anesthesia Reason for Visit Right Knee Arthritis Ht/WT & BMI Height (Feet): 5 Height (Inches): 3.00 Weight (Kilograms): 64.4 Body Mass Index 25.00 Allergies Coded Allergies: No Known Allergies (Verified , 03/10/17) Past Anesthesia History Anesthesia History: Denies:: Abnormal Airway, Anesthesia Reactions, Difficult Intubation, Fam Anesthesia Reaction, Fam Malignant Hypertherm, Malignant Hyperthermia Diabetes History Hx Diabetes?: No MRSA MRSA: No Medications Blood Thinner: Aspirin Last Dose Blood Thinner: Mar 08, 2017 Hypertension Medication: Yes ( Lisinopril) Home Meds Incl Beta Jessa: No Reported Medications Zolpidem 5 Mg Tablet2.5 Mg PO HS PRN For Insomnia Ref 0 03/10/17 Simvastatin 20 Mg [id number] Mg PO HS Ref 0 03/10/17 Omeprazole 20 Mg Tablet.dr20 Mg PO DAILY 03/10/17 Lisinopril 10 Mg [id number] Mg PO DAILY 30 Days Ref 0 03/10/17 Levothyroxine 50 Mcg [id number] Mcg PO DAILY Ref 0 03/10/17 Aspirin 81 Mg Necwue26 Mg PO DAILY Ref 0 03/10/17 Discontinued Reported Medications Carboxymethylcellulos/Glycerin (Refresh Optive Eye Drops)15 Ml Drops1-3 Gtts OP PRN Dryness 11/07/16 Hydrocodone-Acetaminophen 5-325 mg 1 Each Tablet1 Tablet PO Q6H PRN For Pain Ref 0 11/07/16 Meloxicam 7.5 Mg Tablet7.5-15 Mg PO HS 30 Days Ref 0 11/07/16 Zolpidem 5 Mg Tablet2.5-5 Mg PO HS PRN For Insomnia Ref 0 11/07/16 Simvastatin 20 Mg [id number] Mg PO HS Ref 0 11/07/16 Omeprazole 20 Mg Capsule.dr20 Mg PO DAILY Ref 0 11/07/16 Levothyroxine 50 Mcg Tvqorp34 Mcg PO DAILY Ref 0 11/07/16 Lisinopril 10 Mg Ncgdop75 Mg PO HS 30 Days Ref 0 11/06/16 Discontinued Scripts Aspirin 81 Mg Agsojl53 Mg PO DAILY #30 BOTTLE Ref 0 Prov:Fadi Omalley MD 11/08/16 History History of ENT Problems?: No HEENT History: Denies:: Abnormal Airway Cataracts Difficult Intubation Dysphagia Glaucoma Hearing Problem Sinus Problem TMJ Denture Type: None Teeth Condition: Within Normal Limits Hx of Heart Problems?: Yes Cardiovascular History: Positive for:: Hypertension Denies:: Congestive Heart Failure Other History/Comments No CP or hx [place] Hx of Respiratory Problem?: No Respiratory History: Denies:: Tuberculosis Use of C-PAP Machine Hx Neurologic Problems?: No Neurological History: Positive for:: TIA ([facility] october 2016 no residual; work-up unremarkable) Denies:: CVA Hx of GI Problems?: Yes Hx of Problems?: No Genitourinary History: Positive for:: Kidney Stones (10+ yrs ago) Denies:: Urinary Tract Infection Female Hx: Denies:: Problems with Breasts? Skin History: Denies:: History Skin Disorders? (bug bite left forearm) Pressure Ulcers Hx Musculoskeletal Problems?: No Musculoskeletal History: Positive for:: Joint Replacement (partial left knee) Musculoskeletal Trauma (October 2016 bruising fall from horse) Osteoarthritis Hx of Psycho/Social Problems?: No Hx Surgeries?: Yes (KIDNEY STONES, ECTOPIC PREG, KNEE) Other History: Positive for:: Hospitalization (October 2016 ) Thyroid Disease (Levothyroxine) Denies:: Cancer History Blood Transfusions: Positive for:: Accept Blood Products? Denies:: Blood Transfusions Hx Diabetes: No Hx Alcohol Use: NoHx Substance Use: No Smoking Status: Unknown if Ever Smoker Stop/Bang S-Snoring: Do You Snore Loudly: No T-Tired: feel tired, fatigued: No O-Obsered: Observed not breath: No P-Blood Pressure: treated: Yes B- Body Mass Index > 35 kg/m2: No A- Age over 50: Yes N- Neck Large Circumference: No G- Gender Male: No ALBA Total Score: 2 Risk Assessment Category Category 1A: Patient has history of documented sleep apnea, and HAS NOT received any narcotic, sedative or anesthesia administration during this stay. Category 1B: Patient has history of documented sleep apnea, and HAS received any narcotic , sedative or anesthesia administration during this stay Category 2: Patient has SUSPECTED Obstructive Sleep Apnea, and HAS received any narcotic , sedative or anesthesia administration during this stay. Category 3: Patient has SUSPECTED Obstructive Sleep Apnea and HAS NOT received narcotic, sedative or anesthesia administration during this stay. Category 4: Outpatient in Procedural Areas with known sleep apnea or who screen positive for High Risk via the STOP/BANG questionnaire. Exam Exam Vital Signs Vital Signs Date Time Temp Pulse Resp B/P Pulse Ox O2 Delivery O2 Flow Rate FiO2 03/14/17 06:20 36.0 63 18 128/57 96 Room Air General Appearance: Alert, Oriented X3 HEENT/AIRWAY: MP 2, Neck Movement (FROM) Lungs: Clear to Auscultation, Clear to Percussion Heart: Exam Unremarkable, Regular Rate/Rhythm Meds/Labs/Diagnostics Admission Meds Current Medications Vancomycin/0.9 % Sod Chloride 1000 mg/Premix 200 ml @ 200 mls/hr PREOP ONCE IV Last administered on 03/14/17 06:24; Start 03/14/17 at 06:00; Stop at 06:59; Status DC Lactated Ringer's (Lr) 1,000 ml @ 120 mls/hr Q8H20M IV Last administered on 05:48; Start 03/14/17 at 05:00; Stop 03/14/17 at 13:19 Plan Impression Patient chart reviewed, patient interviewed and anesthestic plan with risks, benefits, and alternatives discussed, and informed consent obtained. ASA Physical Status: ASA2 Mod Systemic Disease Anesthetic Plan: GA Bene/Risks/Altern/Consents: Yes HP Complete Prior to Induction: Yes Dwayne Garner MD Mar 14, 2017 07:12
[2017-03-14] MEDS: HYDROmorphone 1 mg/mL Inj IVPUSH PRN ×3 (09:32→09:58)
[2017-03-14] MEDS: fentaNYL-PF 50 mCg/mL 2 mL Inj IVPUSH PRN ×2 (09:33→09:46)
--- NOTE | 2017-03-14 11:02 | PCM.ANEP1 ---
Post Anesthesia PACU Phase 1 Assessment Vital Signs Vital Signs Date Time Temp Pulse Resp B/P Pulse Ox O2 Delivery O2 Flow Rate FiO2 03/14/17 10:48 63 18 136/60 96 Nasal Cannula 2 03/14/17 10:40 60 13 121/58 94 Nasal Cannula 2 03/14/17 10:30 54 8 127/56 96 Nasal Cannula 4 03/14/17 10:20 54 9 127/59 88 Nasal Cannula 2 03/14/17 10:15 36.2 56 14 145/62 94 Nasal Cannula 2 03/14/17 09:59 59 15 151/53 95 Nasal Cannula 3 03/14/17 09:45 59 25 135/55 96 Nasal Cannula 3 03/14/17 09:40 58 10 147/64 100 Simple Mask 10 03/14/17 09:30 57 17 146/61 100 Simple Mask 10 03/14/17 09:25 60 16 152/57 100 Simple Mask 10 03/14/17 09:20 59 16 142/63 100 Simple Mask 10 03/14/17 09:17 36 61 18 147/58 100 Simple Mask 10 03/14/17 06:20 36.0 63 18 128/57 96 Room Air Anesthetic Administered: GA Level of Alertness: Awake, talking KENNY's with Equal Strength: Yes Pain: No Nausea or Vomiting: No CV Function & Hydration Stable: Yes Airway Device: Lungs: Clear to Auscultation, Clear to Percussion PACU Phase 2 Assessment Complications: No Follow up Care: No Patient Instructions Provided: N/A Dwayne Garner MD Mar 14, 2017 11:02
[2017-03-14] MEDS: oxyCODONE-Acetamin 5-325 mg Tablet PO PRN ×2 (11:04→12:25)
--- NOTE | 2017-03-14 13:48 | OP ---
[address] [address] OPERATIVE REPORT PATIENT: JODY VILLAR : 1945 MR#: [id number] ADMIT: 03/14/2017 JOB ID: [id number] DATE OF SURGERY: 03/14/2017 PREOPERATIVE DIAGNOSIS(ES): Right knee medial compartment degenerative joint disease. POSTOPERATIVE DIAGNOSIS(ES): Right knee medial compartment degenerative joint disease. PROCEDURE: Right knee unicompartmental arthroplasty. SURGEON: Martell Mendoza MD. [employer] DIRECTOR: Cortney Pacheco PA-C. INDICATIONS: The patient is a 71-year-old female with right knee medial compartment degenerative arthritis who has failed conservative measures and wished to proceed with a partial knee replacement. She has had a good result with her left knee in the past. We discussed the risks, benefits, and possible complications of surgery including, but not limited to injury to nerves and vessels, infection, bleeding, incomplete relief of symptoms, stiffness, need for additional procedures. The patient had good understanding. All questions were answered. She wished to proceed. A rn surgical was required for the successful completion of this procedure. PROCEDURE IN DETAIL: The patient is brought to the operating room. She was given a preoperative antibiotic and LMA general anesthetic. The right lower extremity was sterilely prepped and draped. A tourniquet was used for hemostasis. An incision was made over the anteromedial knee and dissection was carefully carried through the subcutaneous tissue and a split was made in the quad tendon leaving a cuff of tissue for repair. This was taken along the medial retinaculum down onto the proximal medial tibial face. A small portion of the fat pad was removed, and the anterior boss on the tibia was removed with the saw. Next, the [employer] ZUK cutting guide was placed for the partial knee replacement, and with a standard resection, this was placed in extension with excellent alignment and pinned into position. The distal femoral cut was performed and completed with an osteotome. Next, the tibial cut was performed, doing the sagittal cut first, followed by the horizontal portion and completed with an osteotome. The lateral compartment of her knee seemed to be in good condition. A small portion of the patella was resected on the medialmost aspect in order to facilitate exposure. Osteophytes were removed from the medial femur. The femur was then sized, and felt to be a size C. The tibia was sized, felt to be a size 3. The femur was drilled and then the chamfer cuts were performed. The tibia lugs were drilled and then we trialed the components. [place] that it would either be a 9 or a 10 poly thickness. The bony surfaces were washed and dried. The meniscus was removed and the components were then cemented into position beginning with the ZUK 3 tibia, followed by the UK twin peg, C femur, and a 10 mm poly. Once the cement had been allowed to polymerize and all excess cement was removed, the tourniquet was let down. Electrocautery was used for hemostasis. The wound was copiously irrigated and the wound was then closed with #1 Surgilon on an 0 Vicryl to repair the capsule. The subcu was closed with 2-0 Vicryl, and the skin was closed with a running subcuticular V-Loc suture. Ropivacaine was added as an adjunct local anesthetic. Sterile dressings were applied. Patient tolerated the procedure well. BLOOD LOSS: 25 cc POSTOPERATIVE PROTOCOL: Have the patient weightbear to tolerance. Use a cane or walker as needed for ambulation. Will use Percocet for postop pain control, and she was already given a prescription for this. Plan for aspirin for DVT prophylaxis.
== END | disposition home or self-care (01) ==
LOC: SAS 05:41
PROVIDERS: ATTEND Orthopaedic Surgery
DX: M17.11 Unilateral primary osteoarthritis, right knee (principal); I10 Essential (primary) hypertension; E78.5 Hyperlipidemia, unspecified; G47.00 Insomnia, unspecified; E03.9 Hypothyroidism, unspecified; Z79.82 Long term (current) use of aspirin
CPT/HCPCS: 27446; C1713; C1776; J0131; J0690; J1100; J1170; J1885; J2175; J2405; J2704; J2795; J3010; J3370; J7120; Q0177